=== PATIENT | female | born 1970 | race Caucasian/White ===

== ENCOUNTER → 2020-01-05 | Day surgery (SDC) | payer OTHER ==
[~2020-01-05] MED LIST: CYMBALTA30 MG; EMERGEN-C 1,01000 MG; FENTANYL CITRATE/PF 100MCG/2 ML INJ ONE; FISH OIL 1,0001 EAC2; HYOSCYAMINE 0.125 MG TAB ONE; IBUPROFEN200 MG PO; LIDOCAINE HCL 2% LOCAL INJ 5 ML SDV VIAL INJ ONE; MIDAZOLAM HCL 2 MG/2 ML VIAL ONE; PROPOFOL IV EMULSION 10 MG/ML 20 ML VIAL ONE; TURMERIC538 MG; VITAMIN D; ZYRTEC-D TABLE1 EACH; [UNRECOGNIZED DRUG - OTHER]
[2020-01-05 14:00] VITALS: BP 144/80
== END | disposition home or self-care (01) ==
LOC: OR 09:58
PROVIDERS: ATTEND Internal Medicine Gastroenterology
DX: Z12.11 Encounter for screening for malignant neoplasm of colon (principal); D12.4 Benign neoplasm of descending colon; D12.0 Benign neoplasm of cecum; D12.3 Benign neoplasm of transverse colon; K57.30 Diverticulosis of large intestine without perforation or abscess without bleeding; K64.8 Other hemorrhoids; G47.33 Obstructive sleep apnea (adult) (pediatric); M19.90 Unspecified osteoarthritis, unspecified site; E66.01 Morbid (severe) obesity due to excess calories; F32.9 Major depressive disorder, single episode, unspecified; Z88.2 Allergy status to sulfonamides; Z01.810 Encounter for preprocedural cardiovascular examination; Z01.812 Encounter for preprocedural laboratory examination; Z20.828 Contact with and (suspected) exposure to other viral communicable diseases
CPT/HCPCS: 45380; 45384; 45385; 81025; 93005; J2001; J2250; J2704; J3010; U0002; 45378

== ENCOUNTER → 2022-05-06 | Day surgery (SDC) | payer BC, OTHER ==
[~2022-05-06] MED LIST changes: +CELEBREX200 MG PO; +GLUCAGON FOR INJ 1 MG VIAL ONE; -HYOSCYAMINE 0.125 MG TAB ONE; +LACTATED RINGER'S 1,000 ML ONE; -LIDOCAINE HCL 2% LOCAL INJ 5 ML SDV VIAL INJ ONE; +MOUNJARO10 MG/0.5 SQ; +MULTIVITA PO; +PEPCID20 MG PO; +POVIDONE IODINE 0.05% 0.05 % ML PO ONE; +VESICARE5 MG PO; +VITAMIN C500 M6 PO; +ZINC PO; +[UNRECOGNIZED DRUG - OTHER] PO
[2022-05-06 13:26] VITALS: BP 127/78
== END | disposition home or self-care (01) ==
LOC: OR 11:04
PROVIDERS: ATTEND Internal Medicine Gastroenterology
DX: Z09 Encounter for follow-up examination after completed treatment for conditions other than malignant neoplasm (principal); D12.3 Benign neoplasm of transverse colon; D12.4 Benign neoplasm of descending colon; D12.5 Benign neoplasm of sigmoid colon; K57.30 Diverticulosis of large intestine without perforation or abscess without bleeding; K64.8 Other hemorrhoids; Z71.3 Dietary counseling and surveillance; M19.90 Unspecified osteoarthritis, unspecified site; F41.9 Anxiety disorder, unspecified; F32.A Depression, unspecified; Z88.2 Allergy status to sulfonamides; Z01.810 Encounter for preprocedural cardiovascular examination; Z79.85 Long-term (current) use of injectable non-insulin antidiabetic drugs; Z79.899 Other long term (current) drug therapy; Z68.42 Body mass index [BMI] 45.0-49.9, adult; Z80.0 Family history of malignant neoplasm of digestive organs
CPT/HCPCS: 45380; 45385; 93005; J1610; J2250; J2704; J3010; J7121